=== PATIENT | female | born 1985 | race American Indian/Alaskan Native ===

== ENCOUNTER 2018-12-30 08:28 | Emergency (ER) | payer OTHER ==
[2018-12-30] MEDS ORDERED: NACL 0.9% 1000 ML 1,000 ML IV ONE (10:08)
[2018-12-30] MEDS ORDERED: BENADRYL IV ONE (10:08)
[2018-12-30] MEDS ORDERED: REGLAN IV ONE (10:08)
--- NOTE | 2018-12-30 10:16 | Emergency Department Report ---
ED Headache HPI - General Chief Complaint: Headache Stated Complaint: SHARP HEAD PAIN 3DAYS Time Seen by Provider: 12/30/18 09:05 - History of Present Illness Initial Comments: This is a 33-year-old female nontoxic, well nourished in appearance, no acute signs of distress presents to the ED with c/o of headache x2 weeks. Patient describes headache as diffuse with level of 8 out of 10. Patient denies thunderclap headache. Patient denies any radiation of pain. Patient denies any head trauma. Patient denies any visual changes. Patient denies worse headache. Patient stated that she was seen and the hospital and had a CT scan 2 weeks ago after she had a insulin of hitting head on a table and the CT scan was unremarkable. Patient stated that darkness makes headache better and bright lights make the headache worse. Patient denies any numbness, tingling, fever, chills, nausea, vomiting, chest pain, shortness of breath, stiff neck. Patient denies facial drooping or one sided weakness. Patient denies any radiation of pain. Patient states allergies to sulfa. Timing/Duration: episodic Quality: moderate Head Injury Location: other (diffuse) Recent Head Trauma: occasional headaches Associated Symptoms: denies symptoms. denies: confusion, facial pain, fever/chills, flushing, loss of consciousness, nasal congestion, nasal drainage, numbness in legs/feet, rash, seizures, sinus infection, stiff neck, vision changes, weakness Allergies/Adverse Reactions: Allergies Sulfa (Sulfonamide Antibiotics) Allergy (Verified 11/10/14 10:45) Seizure Home Medications: Ambulatory Orders Ibuprofen [Motrin 600 MG tab] 600 mg PO Q6HR PRN #30 tablet 11/11/14 Nitrofurantoin [place]/M-Cryst [Macrobid] 100 mg PO Q12HR 11/11/14 valACYclovir [Valtrex] 500 mg PO DAILY 11/11/14 hydrOXYzine HCL [Atarax] 25 mg PO Q6HR PRN #20 tablet 07/28/18 Butalb/Acetamin/Caff 50-325-40 [Fioricet] 1 tab PO Q6HR PRN #12 tab 12/30/18 ED Review of Systems ROS: Stated complaint: SHARP HEAD PAIN 3DAYS Other details as noted in HPI Constitutional: denies: chills, fever Eyes: denies: eye pain, eye discharge, vision change ENT: denies: ear pain, throat pain Respiratory: denies: cough, shortness of breath, wheezing Cardiovascular: denies: chest pain, palpitations Endocrine: no symptoms reported Gastrointestinal: denies: abdominal pain, nausea, diarrhea Genitourinary: denies: urgency, dysuria, discharge Musculoskeletal: denies: back pain, joint swelling, arthralgia Skin: denies: rash, lesions Neurological: headache. 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) Hx Asthma: No Hx COPD: No Hx HIV: No - Surgical History Past Surgical History?: Yes Additional Surgical History: tonsilectomy/adenoidectomy - Social History Smoking Status: Former Smoker Substance Use Type: None - Medications Home Medications: Home Medications Medication Instructions Recorded Confirmed Last Taken Type Ibuprofen [Motrin 600 MG tab] 600 mg PO Q6HR PRN #30 tablet 11/11/14 Unknown Rx Nitrofurantoin [place]/M-Cryst 100 mg PO Q12HR 11/11/14 11/11/14 11/09/14 18:00 History [Macrobid] valACYclovir [Valtrex] 500 mg PO DAILY 11/11/14 11/11/14 11/06/14 History hydrOXYzine HCL [Atarax] 25 mg PO Q6HR PRN #20 tablet 07/28/18 Unknown Rx Butalb/Acetamin/Caff 50-325-40 1 tab PO Q6HR PRN #12 tab 12/30/18 Unknown Rx [Fioricet] ED Physical Exam - General Limitations: No Limitations General appearance: alert, in no apparent distress - Head Head exam: Present: atraumatic, normocephalic - Eye Eye exam: Present: normal appearance, PERRL, EOMI - Neck Neck exam: Present: normal inspection, full ROM. Absent: tenderness, meningismus, lymphadenopathy - Respiratory Respiratory exam: Present: normal lung sounds bilaterally. Absent: respiratory distress, wheezes, rales, rhonchi, stridor, chest wall tenderness, accessory muscle use, decreased breath sounds, prolonged expiratory - Cardiovascular Cardiovascular Exam: Present: regular rate, normal rhythm, normal heart sounds. Absent: irregular rhythm, systolic murmur, diastolic murmur, rubs, gallop - Extremities Exam Extremities exam: Present: normal inspection, full ROM - Back Exam Back exam: Present: normal inspection, full ROM. Absent: tenderness, CVA tenderness (R), CVA tenderness (L), muscle spasm, paraspinal tenderness, vertebral tenderness, rash noted - Neurological Exam Neurological exam: Present: alert, oriented X3, normal gait - Expanded Neurological Exam Expanded Patient oriented to: Present: person, place, time Cranial nerves: EOM's Intact: Normal, Facial Sensation: Normal Cerebellar function: Finger to Nose: Normal Motor strength exam: RUE: 5, LUE: 5, RLE: 5, LLE: 5 Best Eye Response (Kuldip): (4) open spontaneously Best Motor Response (Kuldip): (6) obeys commands Best Verbal Response (Kuldip): (5) oriented [place] Total: 15 - Psychiatric Psychiatric exam: Present: normal affect, normal mood - Skin Skin exam: Present: warm, dry, intact, normal color. Absent: rash ED Course Vital Signs 12/30/18 08:34 Temperature 98.1 F Pulse Rate 96 H Respiratory 16 Rate Blood Pressure 114/81 O2 Sat by Pulse 99 Oximetry - Reevaluation(s) Reevaluation #1: 12/30/18 10:15 Patient is speaking in full sentences with no signs of distress noted. ED Medical Decision Making - Medical Decision Making This is a 33-year-old female that presents with headache. Patient is stable and was examined by me. Patient is neurologically stable. There is no stiff neck or neck pain. Vital signs are stable. Patient is afebrile. A CT scan of head without contrast has been obtained and dictated by radiologist. I repeated a CT scan. The patient had a CT scan to be secured to make sure that she does not have any acute cranial other abnormalities with a slow progression. Patient received Benadryl, Reglan, Toradol, and 1 L of normal saline which the patient stated that headache has subsided and resolved. Patient was instructed not to operate any machinery after discharged due to drowsiness of Benadryl. Patient stated that a family member will drive patient home. Patient is discharged with Fioricet. Patient was referred to Follow-up with a primary care/neurologist doctor in 3-5 days or if symptoms worsen and continue return to emergency room as soon as possible. At time of discharge, the patient does not seem toxic or ill in appearance. No acute signs of distress noted. Patient agrees to discharge treatment plan of care. No further questions noted by the patient. Critical care attestation.: If time is entered above; I have spent that time in minutes in the direct care of this critically ill patient, excluding procedure time. ED Disposition Clinical Impression: Headache Qualifiers: Headache type: unspecified Headache chronicity pattern: acute headache Intractability: not intractable Qualified Code(s): R51 - Headache Disposition: DC- TO HOME OR SELFCARE Is pt being admited?: No Does the pt Need Aspirin: No Condition: Stable Instructions: Acute Headache (ED), Butalbital/Aspirin/Caffeine (By mouth) Additional Instructions: Follow-up with a primary care doctor in 3-5 days or if symptoms worsen and continue return to emergency room as soon as possible. Prescriptions: Butalb/Acetamin/Caff 50-325-40 [Fioricet] 1 tab PO Q6HR PRN #12 tab PRN Reason: Headache Referrals: LEAH WILKINS NP-C [Primary Care Provider] - 3-5 Days PRIMARY CAREMD [Referring] - 3-5 Days SHANT BROWN MD [Staff Physician] - 3-5 Days [facility] [Outside] - 3-5 Days [facility] [Outside] - 3-5 Days Forms: Work/School Release Form(ED)
--- NOTE | 2018-12-30 11:12 | Cat Scan Report ---
PROCEDURE: CT HEAD/BRAIN WO CON TECHNIQUE: Computerized tomography of the head was performed without contrast material. CT DOSE LENGTH PRODUCT: 805.4 mGy-cm. HISTORY: headache COMPARISONS: None currently available. FINDINGS: There is no evidence for acute ischemia. There is no hemorrhage. There is no midline shift. There is no hydrocephalus. There is no mass. Age appropriate leyva-white matter attenuation is noted. There is no calvarial fracture. The temporal bones demonstrate aerated mastoid air cells. The middle ears appear unremarkable. Paranasal sinuses are unremarkable. Globes are intact. IMPRESSION: * No acute intracranial findings. This document is electronically signed by Buster Patton MD., Dec 30 2018 11:10:44 AM ET
[2018-12-30 13:03] VITALS: BP 99/67
== END 2018-12-30 13:03 | disposition home or self-care (01) ==
LOC: ED 08:28
DX: R51 Headache (principal); Z87.891 Personal history of nicotine dependence; Z88.2 Allergy status to sulfonamides
CPT/HCPCS: 70450; 96374; 96375; 99283; J1200; J2765; J7030

== ENCOUNTER 2019-01-25 12:00 | Emergency (ER) | payer OTHER ==
[2019-01-26 08:04] VITALS: BP 120/82
--- NOTE | 2019-01-26 08:34 | Emergency Department Report ---
ED Back Pain/Injury HPI - General Chief Complaint: Back Pain/Injury Stated Complaint: BACK PAIN Time Seen by Provider: 01/26/19 08:29 Source: patient Limitations: No Limitations - History of Present Illness Initial Comments: This is a 33-year-old patient came reported that she has been having back pain on and off times one month. She denies any nausea vomiting or any abdominal pain. Denies any urinary burning, frequency or urgency. Last menstrual period started yesterday. Pain is 2/10 to lower mid back. Denies any radiation of pain. Denies any vaginal bleeding or discharge or concern for STDs. Patient reported that she has a history of back pain. Reports that she is taking tramadol without any relief MD Complaint: back pain Onset/Timin -: month(s) Similar Symptoms Previously: Yes Place: home Radiation: none Severity: mild Severity scale (0 -10): 2 Quality: aching Consistency: intermittent Improves With: other (rest) Worsens With: walking Context: turning/twisting Associated Symptoms: denies: confusion, weakness, chest pain, numbness, difficulty walking, cough, difficulty urinating, diaphoresis, incontinence, fever/chills, constipation, headaches, abdominal pain, loss of appetite, malaise, nausea/vomiting, rash, seizure, shortness of breath, syncope Treatments Prior to Arrival: other (tramadol) - Related Data Home Medications Medication Instructions Recorded Confirmed Last Taken Nitrofurantoin [place]/M-Cryst 100 mg PO Q12HR 11/11/14 11/11/14 11/09/14 18:00 [Macrobid] valACYclovir [Valtrex] 500 mg PO DAILY 11/11/14 11/11/14 11/06/14 Previous Rx's Medication Instructions Recorded Last Taken Type Ibuprofen [Motrin 600 MG tab] 600 mg PO Q6HR PRN #30 tablet 11/11/14 Unknown Rx hydrOXYzine HCL [Atarax] 25 mg PO Q6HR PRN #20 tablet 07/28/18 Unknown Rx Butalb/Acetamin/Caff 50-325-40 1 tab PO Q6HR PRN #12 tab 12/30/18 Unknown Rx [Fioricet] Ibuprofen [Motrin 800 MG tab] 800 mg PO Q8HR PRN #20 tablet 01/03/19 Unknown Rx hydrOXYzine HCL [Atarax] 25 mg PO Q6HR PRN #20 tablet 01/03/19 Unknown Rx Allergies Allergy/AdvReac Type Severity Reaction Status Date / Time Sulfa (Sulfonamide Allergy Seizure Verified 11/10/14 10:45 Antibiotics) ED Review of Systems ROS: Stated complaint: BACK PAIN Other details as noted in HPI Constitutional: denies: chills, fever Respiratory: denies: cough, shortness of breath, wheezing Cardiovascular: denies: chest pain, palpitations, edema, syncope Gastrointestinal: denies: abdominal pain, nausea, vomiting, diarrhea, constipation Genitourinary: denies: urgency, dysuria, frequency, hematuria, discharge, abnormal menses Musculoskeletal: back pain. 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 No distress. Alert and acting appropriately. 33-year-old female well-nourished well-developed in no acute distress Back/Abdomen: No Abdominal Tenderness (no CVA tenderness), No Perithoracic Tenderness, No Perilumbar Tenderness, No Sacroiliac Tenderness, No Flank Tenderness, No Straight Leg Raise Pain Neuro: Yes Normal Sensation, Yes Normal DTR's, Yes Normal Gait, No Motor Weakness ED Course Vital Signs 01/26/19 00:35 Temperature 98.6 F Pulse Rate 88 Respiratory 16 Rate Blood Pressure 120/82 O2 Sat by Pulse 99 Oximetry - Reevaluation(s) Reevaluation #1: 01/26/19 09:18 I offered patient Toradol and steroid shot and she decided to leave. ED Medical Decision Making - Medical Decision Making I was unable to do any tests then to include urinalysis on patient because she left after being seen Critical care attestation.: If time is entered above; I have spent that time in minutes in the direct care of this critically ill patient, excluding procedure time. ED Disposition Clinical Impression: Back pain Qualifiers: Back pain location: low back pain Chronicity: acute Back pain laterality: midline Sciatica presence: without sciatica Qualified Code(s): M54.5 - Low back pain Disposition: Z-07 ELOPED Is pt being admited?: No Does the pt Need Aspirin: No Condition: Stable
== END 2019-01-26 09:55 | disposition left against medical advice (07) ==
LOC: ED 12:00
DX: M54.5 Low back pain (principal)
CPT/HCPCS: 99282

== ENCOUNTER 2019-01-26 02:00 | Emergency (ER) | payer SELFPAY ==
[2019-01-26 02:24] VITALS: BP 120/82
== END 2019-01-26 07:44 ==
LOC: ED 02:00
DX: M54.5 Low back pain (principal); Z53.21 Procedure and treatment not carried out due to patient leaving prior to being seen by health care provider

== ENCOUNTER 2019-02-11 23:34 | Emergency (ER) | payer SELFPAY ==
[2019-02-11 23:39] VITALS: BP 118/78
== END 2019-02-12 03:15 | disposition left against medical advice (07) ==
LOC: ED 23:34
DX: F41.9 Anxiety disorder, unspecified (principal); Z53.21 Procedure and treatment not carried out due to patient leaving prior to being seen by health care provider

== ENCOUNTER 2021-01-06 09:58 | Inpatient (IN) | payer OTHER ==
[2021-01-08 15:31] VITALS: BP 104/69
== END 2021-01-08 15:00 | disposition home or self-care (01) | DRG 806 ==
LOC: TRG 09:58 → APU 09:58 → TRG 11:48 → LD 13:29 → OB 16:17
PROVIDERS: ADMIT Obstetrics & Gynecology; ATTEND Obstetrics & Gynecology
PROC: 10E0XZZ Delivery of Products of Conception, External Approach (ICD-10-PCS; principal; 2021-01-06)
PROC: 3E0234Z Introduction of Serum, Toxoid and Vaccine into Muscle, Percutaneous Approach (ICD-10-PCS; 2021-01-07)
DX: O76 Abnormality in fetal heart rate and rhythm complicating labor and delivery (principal); O98.32 Other infections with a predominantly sexual mode of transmission complicating childbirth; Z37.0 Single live birth; D62 Acute posthemorrhagic anemia; O99.824 Streptococcus B carrier state complicating childbirth; Z3A.39 39 weeks gestation of pregnancy; Z20.822 Contact with and (suspected) exposure to COVID-19; Z23 Encounter for immunization; Z88.2 Allergy status to sulfonamides; A60.00 Herpesviral infection of urogenital system, unspecified; Z13.30 Encounter for screening examination for mental health and behavioral disorders, unspecified; O90.81 Anemia of the puerperium
CPT/HCPCS: 36415; 59025; 85014; 85018; 85027; 86592; 86850; 86900; 86901; 96361; 96365; 99211; G0378; G0463; J0290; J7120; U0003